=== PATIENT | female | born 1960 | race Caucasian/White ===

== ENCOUNTER → 2024-09-18 | Day surgery (SDC) | payer OTHER ==
[2024-09-11 12:24] LABS: BASOPHILS % 0.4 % (0.0-1.0); EOSINOPHILS % 1.4 % (0.0-6.0); LYMPHOCYTES % 28.8 % (18.0-39.1); MONOCYTES % 5.9 % (4.4-11.3); NEUTROPHILS % 63.4 % (38.7-80.0); RED CELL DISTRIBUTION WIDTH 15.1 % (11.7-14.4)
[2024-09-11 12:48] LABS: INR 0.84
[2024-09-11 12:56] LABS: EST GLOMERULAR FILTRATION RATE 72.0 ML/MIN (>=60)
[~2024-09-18] MED LIST: ADVAIR 250-501 EACH INH; CALCIUM + VITA1 EACH PO; ESTRADIOL TOP; FARXIGA10 MG PO; FENTANYL CITRATE/PF 100MCG/2 ML INJ ONE; FERROUS SULFAT325 MG PO; LEVOTHYROXINE50 MCG PO; LIDOCAINE HCL 2% LOCAL INJ 5 ML SDV VIAL INJ ONE; LOSARTAN POTASS25 MG PO; PROPOFOL IV EMULSION 10 MG/ML 20 ML VIAL ONE; STOOL SOFTENER100 MG PO; VENTOLIN HFA18 GM INH; [UNRECOGNIZED DRUG - REMARK] PO
[2024-09-18] MEDS: LACTATED RINGER'S 1,000 ML ONE (07:36)
[2024-09-18 09:39] VITALS: TEMP 97.5
[2024-09-18 09:50] VITALS: BP 138/70; PULSE 65; RESP 14; O2SAT 96
== END | disposition home or self-care (01) ==
LOC: OR 06:28
PROVIDERS: ATTEND Internal Medicine Gastroenterology
DX: Z12.11 Encounter for screening for malignant neoplasm of colon (principal); D12.2 Benign neoplasm of ascending colon; K29.40 Chronic atrophic gastritis without bleeding; K21.9 Gastro-esophageal reflux disease without esophagitis; K28.9 Gastrojejunal ulcer, unspecified as acute or chronic, without hemorrhage or perforation; K64.8 Other hemorrhoids; N18.30 Chronic kidney disease, stage 3 unspecified; D50.9 Iron deficiency anemia, unspecified; R63.4 Abnormal weight loss; R00.1 Bradycardia, unspecified; J44.9 Chronic obstructive pulmonary disease, unspecified; E03.9 Hypothyroidism, unspecified; F17.210 Nicotine dependence, cigarettes, uncomplicated; Z91.018 Allergy to other foods; Z01.810 Encounter for preprocedural cardiovascular examination; Z01.812 Encounter for preprocedural laboratory examination; Z79.899 Other long term (current) drug therapy; Z68.1 Body mass index [BMI] 19.9 or less, adult; Z80.0 Family history of malignant neoplasm of digestive organs
CPT/HCPCS: 36415; 43239; 45380; 45381; 45385; 80053; 85025; 85610; 85730; 88305; 93005; J2003; J2704; J3010; J7121; 45378